=== PATIENT | female | born 2000 | race African-American/Black ===

== ENCOUNTER 2021-11-15 12:55 | Observation (INO) | payer OTHER ==
[~2021-11-15 12:55] MED LIST: ALBUPOW26
== END 2021-11-15 15:19 | disposition home or self-care (01) ==
LOC: LDRP 12:55
PROVIDERS: ADMIT Obstetrics & Gynecology Obstetrics; ATTEND Obstetrics & Gynecology Obstetrics
DX: O62.9 Abnormality of forces of labor, unspecified (principal); O47.03 False labor before 37 completed weeks of gestation, third trimester; O26.893 Other specified pregnancy related conditions, third trimester; R10.2 Pelvic and perineal pain; K21.9 Gastro-esophageal reflux disease without esophagitis; R11.0 Nausea; O99.513 Diseases of the respiratory system complicating pregnancy, third trimester; J45.909 Unspecified asthma, uncomplicated; Z3A.38 38 weeks gestation of pregnancy
CPT/HCPCS: 59025; 81002; 84112; 94760; G0378; G0379; Q0114

== ENCOUNTER 2021-11-17 00:55 | Inpatient (IN) | payer OTHER ==
[~2021-11-17] VITALS: Ht 175.3 cm; Wt 85.7 kg
[2021-11-17] MEDS ORDERED: LACT. RINGERS/OXYTOCIN 20UNITS 1,000 ML IV ONE (01:06)
[2021-11-17] MEDS ORDERED: PENICILLIN G POT 5MIL/D5 50ML 50 ML IV ONE ×2 (01:06→01:15)
[2021-11-17] MEDS ORDERED: DERMOPLAST 60ML BOTTLE TOP PRN (01:15)
[2021-11-17] MEDS ORDERED: LACTATED RINGER'S 1,000 ML IV SCH (01:15)
[2021-11-17] MEDS ORDERED: LACT. RINGERS/OXYTOCIN 20UNITS 500 ML IV ONE ×2 (01:15→01:45)
[2021-11-17] MEDS ORDERED: PROMETHAZINE HCL 25 MG/ML 1ML IV PRN (01:15)
[2021-11-17] MEDS ORDERED: WITCH HAZEL-GLYCERIN PAD TOP PRN (01:15)
[2021-11-17] MEDS ORDERED: LIDOCAINE 2%HCL (LOCAL ANESTH.) INJ 20ML MDV IJ PRN (01:15)
[2021-11-17] MEDS ORDERED: PHISODERM TOP SOLN 240ML BTL TOP PRN (01:15)
[2021-11-17] MEDS ORDERED: BUTORPHANOL TARTRATE 2 MG/1 ML VIAL IV PRN ×2 (01:15)
[2021-11-17] MEDS ORDERED: IBUPROFEN 600 MG TAB PO PRN (02:30)
[2021-11-17] MEDS ORDERED: ALUM & MAG HYDROX-SIMETH LIQ(MAALOX) 30 ML PO ONE (02:30)
[2021-11-17] MEDS: ACETAMINOPHEN 325 MG TAB PO PRN ×3 (03:20→20:08)
[2021-11-17 03:27] LABS: Basophils # (auto) 0 10 ^3/uL (0-0.2); Eosinophils # (auto) 0 10 ^3/uL (0-0.8); Hemoglobin 11.3 g/dL (12.2-16.2); Lymphocytes # (auto) 0.8 10 ^3/uL (0.4-5.4); Monocytes # (auto) 0.7 10 ^3/uL (0-1.3); Neutrophils # (auto) 5.1 10 ^3/uL (1.6-8.6); Nucleated Red Blood Cells % 0.1 %; Red Blood Cells 4.28 10^6/uL (4.0-5.20); Red Cell Distribution Width 16.5 % (11.8-14.3); White Blood Cell 6.6 10^3/uL (4.4-10.8)
[2021-11-17 03:29] LABS: Basophils % (auto) 0.7 % (0.0-2.0); Eosinophils % (auto) 0.7 % (0.0-7.0); Hematocrit 34.3 % (36.0-46.0); Lymphocytes % (auto) 11.9 % (10.0-50.0); Mean Corpuscular Hemoglobin 26.5 pg (28.0-32.0); Mean Corpuscular Hgb Conc. 33.1 g/dL (32.0-36.0); Monocytes % (auto) 10.2 % (0.0-12.0); Neutrophils % (auto) 76.5 % (37.0-80.0)
[2021-11-17 03:46] LABS: INR 0.91 (0.9-1.15); Partial Thromboplastin Time 34.7 sec (23.6-33.0)
[2021-11-17 04:06] LABS: Albumin 2.4 g/dL (3.4-5.0); BUN/Creatinine Ratio 6.2; Calcium 8.4 mg/dL (8.5-10.1); Potassium 4.3 mmol/L (3.5-5.1)
[2021-11-17 04:09] LABS: Bilirubin, Total 0.3 mg/dL (0.2-1.0)
[2021-11-17 06:57] VITALS: BP 137/78
[2021-11-17 08:07] LABS: Alcohol, Urine < 3.0 mg/dL (0-10); Amphetamine Screen, Urine NEGATIVE (NEGATIVE); Barbiturate Scree,Urine NEGATIVE (NEGATIVE); Benzodiazephine Screen, Urine NEGATIVE (NEGATIVE); Cannabinoid Screen, Urine NEGATIVE (NEGATIVE); Cocaine Screen, Urine NEGATIVE (NEGATIVE); Opiate Scree,Urine NEGATIVE (NEGATIVE); Phencyclidine Screen, Urine NEGATIVE (NEGATIVE)
[2021-11-17 10:42] VITALS: BP 134/83
[2021-11-17 14:46] VITALS: BP 110/60
[2021-11-17 19:30] VITALS: BP 108/67
[2021-11-17 23:00] VITALS: BP 109/78
[2021-11-18 03:00] VITALS: BP 103/68
[2021-11-18] MEDS ORDERED: TETANUS-DIPTH-ACEL PERTUSSIS 0.5ML SYR Tdap IM ONE (06:45)
[2021-11-18] MEDS ORDERED: INFLUENZA QUAD 2021-2022 0.5 ML SYRG IM ONE (06:45)
[2021-11-18 07:08] VITALS: BP 95/62
[2021-11-18] MEDS ORDERED: PREN-96 PO (08:26)
[2021-11-18 10:57] VITALS: BP 120/69
== END 2021-11-18 11:32 | disposition home or self-care (01) | DRG 560 ==
LOC: OBSVTOIN 00:55 → LDRP 00:55 → UNDODISIN 11-18 11:32
PROVIDERS: ADMIT Obstetrics & Gynecology; ATTEND Obstetrics & Gynecology
PROC: 10E0XZZ Delivery of Products of Conception, External Approach (ICD-10-PCS; principal; 2021-11-17)
DX: O98.52 Other viral diseases complicating childbirth (principal); Z37.0 Single live birth; U07.1 COVID-19; Z3A.38 38 weeks gestation of pregnancy; O62.3 Precipitate labor
CPT/HCPCS: 36415; 59025; 59409; 80053; 80307; 85025; 85610; 85730; 86850; 86900; 86901; 87426; 90686; 90715; 94760; 96365; 96366; 96372; G0378; J2540; J2590